=== PATIENT | male | born 1970 | race Caucasian/White ===

== ENCOUNTER 2017-09-13 12:22 | Day surgery (SDC) | payer OTHER ==
[2017-09-13] MEDS ORDERED: PROPOFOL 40 ML (13:18)
[2017-09-13] MEDS ORDERED: LIDOCAINE 2% (SDV) 5 ML INJ (13:18)
[2017-09-13] MEDS ORDERED: MIDAZOLAM 1 MG/ML 2 ML INJ (13:19)
== END 2017-09-13 18:46 | disposition home or self-care (01) ==
LOC: GIL 12:22
DX: Z12.11 Encounter for screening for malignant neoplasm of colon (principal); K64.8 Other hemorrhoids
CPT/HCPCS: 45380; 88305